=== PATIENT | male | born 1950 | race Caucasian/White ===

== ENCOUNTER 2018-09-29 14:46 | Inpatient (IN) ==
--- NOTE | 2018-09-29 15:12 | Emergency Department Note ---
Disposition Clinical Impression: FRANCK (acute kidney injury), Hypokalemia Cerebrovascular accident Qualifiers: CVA mechanism: other Qualified Code(s): I63.89 - Other cerebral infarction Anemia Qualifiers: Anemia type: unspecified type Qualified Code(s): D64.9 - Anemia, unspecified Disposition: Admitted As Inpatient Condition: Fair Forms: ED Satisfaction Letter Time of Disposition: 16:33 Neuro HPI - General Chief Complaint: ED Neuro Symptoms/Deficit Stated Complaint: Poss. Stroke Last week Time Seen by Provider: 09/29/18 14:53 Source: patient Limitations: no limitations Nursing Notes Reviewed: Yes Vital Signs Reviewed: Yes - History of Present Illness HPI Narrative: Patient is a 67-year-old male presenting with right-sided facial droop and weakness. Patient has no history of CVA, he does believe that he has had a TIA many years ago. Patient is currently on Plavix and aspirin for history of stenting in his heart. Per patient morning, this was four and a half days ago, the patient states that he was in his kitchen when he began to have his coffee run out of the right side of his mouth. He then went into the restroom and noticed that he had right-sided facial droop with difficulty speaking initially. He states that he no longer feels as though he has difficulty speaking but he continues to have right facial droop as well as difficulty shutting his right eye. Patient denies any unilateral weakness in h is upper or lower extremities. He does think he has change in sensation slightly in the right lower arm. No motor changes in his legs. Patient without fever, chills, cough, abdominal pain, nausea or vomiting. Patient denies any recent trauma or falls. - Related Data Home Medications: Home Medications Medication Instructions Recorded Confirmed Albuterol Sulfate [Albuterol 2 IH Q4HR 02/05/17 Inhaler] Carvedilol 12.5 mg PO BID 02/05/17 02/05/17 Gemfibrozil [Lopid] 600 mg PO BIDWM 02/05/17 02/05/17 Insulin ASPART [Novolog Flexpen] 75 unit SQ TID 02/05/17 Lisinopril [Zestril] 40 mg PO DAILY 02/05/17 02/05/17 Pregabalin [Lyrica] 100 mg PO BID 02/05/17 08/05/17 Aspirin [Lo-Dose Aspirin EC] 81 mg PO 08/05/17 Clopidogrel Bisulfate [Plavix] 75 mg PO 08/05/17 Dulaglutide [Trulicity] 1.5 mg SQ 08/05/17 hydroCHLOROthiazide 25 mg PO DAILY 08/05/17 08/05/17 [Hydrochlorothiazide] Previous Rx's Medication Instructions Recorded Carvedilol [Coreg] 25 mg PO BID #60 tablet 08/05/17 Allergies/Adverse Reactions: Allergies Allergy/AdvReac Type Severity Reaction Status Date / Time No Known Allergies Allergy Verified 09/29/18 14:59 All systems ED: reviewed and negative except as stated. Review of Systems: As Per HPI Constitutional: Denies: fever, chills, weakness, weight change Eyes: Denies: eye pain, eye discharge, vision change ENT ED: Denies: ear pain, throat pain, dental pain, hearing loss, epistaxis, congestion, dysphagia Cardiovascular: Denies: chest pain, palpitations, dyspnea on exertion, edema, syncope Respiratory: Denies: cough, dyspnea, wheezes, hemoptysis, stridor Gastrointestinal: Denies: abdominal pain, nausea, vomiting, diarrhea, constipation, hematemesis, melena, hematochezia Genitourinary: Denies: urgency, dysuria, frequency, hematuria Musculoskeletal: Denies: back pain, neck pain, arthralgia, myalgia Integumentary: Denies: rash, abrasion, lesions Neurological: Reports: headache, weakness, paresthesias. Denies: numbness, confusion Psychiatric: Denies: anxiety Past Medical History - Past Medical History Attestation: Yes The following information was validated with the patient. Source: patient Medical history: Reports: coronary artery disease, diabetes, hyperlipidemia, hypertension, myocardial infarction, renal disease, TIA, other Surgical history: Reports: angioplasty/stent Psychiatric history: Reports: no psych history - Social History Smoking Status: Current every day smoker Smokeless Tobacco Status: No Alcohol use: Reports: none Drug use: Reports: none Physical Exam - General Limitations: no limitations General appearance: alert - Head Head exam: atraumatic, normocephalic - Eye Eye exam: Present: normal appearance, PERRL, EOMI - ENT ENT exam: normal exam, normal oropharynx, mucous membranes moist - Neck Neck exam: Present: normal inspection, full ROM, trachea midline - Chest Chest inspection: Present: normal inspection, symmetric chest wall rise - Respiratory Respiratory exam: Present: normal lung sounds bilaterally. Absent: respiratory distress - Cardiovascular Cardiovascular exam: Present: regular rate, normal rhythm, normal heart sounds - Abdominal Exam Abdominal exam: Present: soft, Non-Tender. Absent: tenderness, distention, guarding, rebound, rigidity - Extremities Exam Extremities exam: Present: normal inspection, full ROM. Absent: tenderness, pedal edema - Neurological Exam Neurological exam: Present: alert, oriented X3, CN II-XII intact - Expanded Neurological Exam Patient oriented to: Present: person, place, time Speech: Present: fluid speech Cranial nerves: EOM function (II, III, IV, ): Normal, facial sensation (V): Normal, facial palsy (VII): Abnormal Right, gag reflex (IX): Normal, spinal accessory function (XI): Normal, tongue deviation (XII): Normal Cerebellar function: finger to nose: Normal Motor strength - LUE: 5/5 Motor strength - RUE: 5/5 Motor strength - LLE: 5/5 Motor strength - RLE: 5/5 Upper motor neuron exam: kim neglect: Absent bilaterally, pronator drift: Absent bilaterally Coma Scale Eye Opening: Spontaneous Coma Scale Motor Response: Obeys Commands Coma Scale Verbal Response: Oriented Coma Scale Total: 15 - Psychiatric Psychiatric exam: Present: normal affect, normal mood - Skin Skin exam: Present: warm, dry, intact, normal color Course Vital Signs Temperature 98.0 F 09/29/18 14:48 Pulse Rate 82 09/29/18 14:48 Respiratory Rate 16 09/29/18 14:48 Blood Pressure 163/77 09/29/18 14:48 O2 Sat by Pulse Oximetry 96 09/29/18 14:48 Temperature 98.0 F 09/29/18 15:01 Pulse Rate 79 09/29/18 15:45 Respiratory Rate 20 09/29/18 15:45 Blood Pressure 163/90 09/29/18 15:45 O2 Sat by Pulse Oximetry 99 09/29/18 15:45 Oxygen Delivery Oxygen Delivery Room Air Neuro Symptoms/Deficit - MDM Narrative Medical decision making narrative: Patient is a 59-year-old male presenting with right facial weakness. This is started Jorge Luis 4-1/2 days ago. He was not seen as he was able to drive in the snow. States his symptoms have not gotten worse and gone unchanged. Patient has history of hypertension, hyperlipidemia as well as insulin-dependent diabetes mellitus type 2 as well as TIA multiple years ago. Never diagnosed with a CVA. On initial evaluation, patient is NIH of 3, GCS of 15, does have right-sided facial droop as well as right upper facial decreased movement. On examination, no upper extremity signs or symptoms, no lower extrude any signs or symptoms, no weakness or sensation changes. Patient is currently on Plavix and aspirin for history of CAD status post stenting. She has been taking this medication as prescribed. CT of the head was performed which shows no acute intracranial abnormality. EKG shows no acute ischemic changes. Troponin is negative. CBC is unremarkable other than slight anemia at 12.4. Patient's serum creatinine is 1.74, appears slightly higher than baseline of 1.5 as well as hypokalemic at 3.1. Patient was started on normal saline with a 500 mL bolus as well as by mouth potassium replacement. Corrected sodium is within normal limits as patient is hyperglycemic. He states that he is at her check his blood glucose in the past few hours due to being here. At this point in time, we will admit the patient for concern for CVA. I will speak with the hospitalist get the patient admitted. - Medical Records Medical records reviewed: Yes I reviewed the patient's medical records. - Lab Data Lab results reviewed: Yes I reviewed the patient's lab results. Result diagrams: 09/29/18 15:15 09/29/18 15:15 Lab Results 09/29/18 09/29/18 09/29/18 Range/Units 15:15 15:15 15:15 WBC 8.8 (4.3-11.1) K/mcL RBC 4.20 (4.19-5.50) M/mcL Hgb 12.4 L (12.9-16.9) g/dL Hct 36.6 L (37.5-50.1) % MCV 87.1 (83.0-100.0) fL MCH 29.5 (28.0-33.3) pg MCHC 33.9 (31.6-35.5) g/dL RDW 13.6 (11.5-14.5) % Plt Count 247 (140-400) K/mcL MPV 9.9 (9.4-12.4) fL PT 10.5 (9.4-12.1) Seconds INR 0.9 APTT 31.5 (26.0-36.0) Seconds Sodium 137 (136-145) mEq/L Potassium 3.1 L (3.5-5.1) mEq/L Chloride 100 (98-107) mEq/L Carbon Dioxide 27 (23-29) mEq/L BUN 22 (8-23) mg/dL Creatinine 1.74 H (0.70-1.30) mg/dL Est GFR ( Amer) 48 L (> 60) Est GFR (Non-Af Amer) 39 L (> 60) BUN/Creatinine Ratio 13 (6-26) Glucose 268 H (70-105) mg/dL Calculated Osmolality 297 (280-300) Calcium 8.2 L (8.6-10.3) mg/dL Troponin I 0.03 (< 0.04) ng/mL - Radiology Data Radiology results reviewed: Yes I reviewed the patient's radiology results. Head CT 09/29/18 15:06 IMPRESSION: No acute intracranial abnormality. D/ / Burt White MD / Burt White MD Interpreting Provider: Burt hWite MD - EKG Data EKG attestation: Yes I reviewed and interpreted this EKG. EKG results narrative: EKG performed at 1613 with ventricular rate of 76, normal axis, regular rhythm, prolonged NC interval at 200, no dropped beats. No ST elevation or depression. Nonspecific T-wave changes. Overall EKG shows normal sinus rhythm with first- degree block. NIH Stroke Scale - Level of Consciousness LOC: Alert - LOC Questions LOC Questions: Answers both correctly - LOC Commands LOC Commands: Performs both correctly - Best Gaze Best Gaze: Normal - Visual Visual: No visual loss - Facial Palsy Facial Palsy: Complete absence of movement in upper and lower face - Motor Arms Motor Arm-Left: No drift for 10 seconds Motor Arm-Right: No drift for 10 seconds - Motor Legs Motor Leg-Left: No drift for 5 seconds Motor Leg-Right: No drift for 5 seconds - Limb Ataxia Limb Ataxia: Absent of affected limb too weak to perform exam - Sensory Sensory: Normal - Best Language Best Language: No aphasia - Dysarthria Dysarthria: Normal - Extinction and Inattention Extinction and Inattention: Normal - NIHSS Total Score NIHSS Total Score: 3 TPA Checklist - LKW: 3-4.5 hrs Add. Warnings/Precautions Patient/family understanding: The patient/family members have been counseled and understood the risk, benefit, and alternatives of treatment. Durga - Durga Situation: Demographics, MOA Background: Presenting Complaint, Relevant PMH, Meds, & Allergies Assessment: Vital Signs, Course and respsone to treatment, Exam Concerns, Patient/Family Expectation, Pertinant Lab Results, Outstanding Labs Recommendation: Barrier(s) to disposition, Recommendation based on pending studies, treatments, or consults Durga Report Given to: Hospitalist Durga Repor Time: 16:33 (accepted)
--- NOTE | 2018-09-29 15:15 | Emergency Department Note ---
Disposition Clinical Impression: Cerebrovascular accident Qualifiers: CVA mechanism: unspecified Qualified Code(s): I63.9 - Cerebral infarction, unspecified Disposition: Admitted As Inpatient Forms: ED Satisfaction Letter General Adult HPI - General Chief complaint: ED Neuro Symptoms/Deficit Stated complaint: Poss. Stroke Last week Time Seen by Provider: 09/29/18 14:53 Source: patient Limitations: no limitations Nursing Notes Reviewed: Yes Vital Signs Reviewed: Yes - History of Present Illness HPI Narrative: ED ATTESTATION NOTE: I examined this patient and my medical decision-making was reviewed with the Resident Physician/[employer]LECT[employer]ICIAN/PA/Student. I have personally performed a face to face evaluation on this patient & I agree with the documented findings, disposition and treatment plan as described except to the extent set forth below. Patient was seen with emergency medicine resident Jessie Calderon please see copy of his note for details of this encounter Briefly: 67 year old male no prior history of stroke or TIA comes in with strokelike symptoms starting on of some visual disturbances and dysarthria. Patient's NIH was 1 or 2. Patient will undergo CVA workup. Patient is out of the window for TPA and assessed not a stroke alert candidate. Patient will be admitted. Admission disposition pending Pain Scale: 5 - Related Data Home Medications Medication Instructions Recorded Confirmed Albuterol Sulfate [Albuterol 2 IH Q4HR 02/05/17 Inhaler] Carvedilol 12.5 mg PO BID 02/05/17 02/05/17 Gemfibrozil [Lopid] 600 mg PO BIDWM 02/05/17 02/05/17 Insulin ASPART [Novolog Flexpen] 75 unit SQ TID 02/05/17 Lisinopril [Zestril] 40 mg PO DAILY 02/05/17 02/05/17 Pregabalin [Lyrica] 100 mg PO BID 02/05/17 08/05/17 Aspirin [Lo-Dose Aspirin EC] 81 mg PO 08/05/17 Clopidogrel Bisulfate [Plavix] 75 mg PO 08/05/17 Dulaglutide [Trulicity] 1.5 mg SQ 08/05/17 hydroCHLOROthiazide 25 mg PO DAILY 08/05/17 08/05/17 [Hydrochlorothiazide] Previous Rx's Medication Instructions Recorded Carvedilol [Coreg] 25 mg PO BID #60 tablet 08/05/17 Allergies Allergy/AdvReac Type Severity Reaction Status Date / Time No Known Allergies Allergy Verified 09/29/18 14:59 Past Medical History - Past Medical History Medical history: Reports: coronary artery disease, diabetes, hyperlipidemia, hypertension, myocardial infarction, renal disease, TIA, other Surgical history: Reports: angioplasty/stent Psychiatric history: Reports: no psych history - Social History Smoking Status: Current every day smoker Smokeless Tobacco Status: No Alcohol use: Reports: none Drug use: Reports: none Physical Exam - General Limitations: no limitations General appearance: alert Course Vital Signs Temperature 98.0 F 09/29/18 14:48 Pulse Rate 82 09/29/18 14:48 Respiratory Rate 16 09/29/18 14:48 Blood Pressure 163/77 09/29/18 14:48 O2 Sat by Pulse Oximetry 96 09/29/18 14:48 Temperature 98.0 F 09/29/18 15:01 Pulse Rate 82 09/29/18 15:01 Respiratory Rate 16 09/29/18 15:01 Blood Pressure 163/77 09/29/18 15:01 O2 Sat by Pulse Oximetry 100 09/29/18 15:01 Oxygen Delivery Oxygen Delivery Room Air
[2018-09-29 15:32] LABS: Hematocrit 36.6 % (37.5-50.1); Hemoglobin 12.4 g/dL (12.9-16.9); Mean Corpuscular HGB Conc 33.9 g/dL (31.6-35.5); Mean Corpuscular Hemoglobin 29.5 pg (28.0-33.3); Mean Corpuscular Volume 87.1 fL (83.0-100.0); Mean Platelet Volume 9.9 fL (9.4-12.4); Platelet Count 247 K/mcL (140-400); Red Cell Distribution Width 13.6 % (11.5-14.5)
[2018-09-29 15:41] LABS: INR 0.9; Prothrombin Time 10.5 Seconds (9.4-12.1)
[2018-09-29 15:44] LABS: Activated Partial Thrombo Time 31.5 Seconds (26.0-36.0)
[2018-09-29 15:51] LABS: Calcium 8.2 mg/dL (8.6-10.3); Potassium 3.1 mEq/L (3.5-5.1); Troponin I 0.03 ng/mL (< 0.04)
[2018-09-29] MEDS ORDERED: 0.9 % Sodium Chloride 500 ML IVC ONE (16:07)
--- NOTE | 2018-09-29 16:34 | Internal Med History&Physical ---
<Adebayo Frost - Last Filed: 09/29/18 17:30> Date of Encounter: 09/29/18 Time of Encounter: 16:33 Internal Medicine - H&P: HPI Chief complaint: Right facial droop Admitted From: Home History of present illness: Mr. Lujan is a 67 year old male with a PMH of CAD on Aspirin and Plavix, cardiac stent x1, HTN, HLD, DM type 2 with an insulin pump, and RLS presented c/o right facial droop, right tongue numbness, and blurry vision since awaking on 09/25/18. Patient noticed coffee pouring out of the side of his mouth when he attempted to drink coffee morning. Patient reports the right side of his tongue "feels like someone rubbed chalk on it" and he had difficulty speaking initially. He reports associated generalized weakness, chronic numbness in his right leg due to diabetic neuropathy, and his right eye has been watering since . He decided to come to the ED today when symptoms did not improve. In the ED, CT brain revealed no acute intracranial abnormality. He was not a candidate for tPa administration due to the onset of symptoms 4 days ago. Patient was admitted for further CVA work up. Past Med Surg Social Fam HX - Past Medical History Medical history: coronary artery disease, diabetes (on insulin pump), hyperlipidemia, hypertension, myocardial infarction (stent x1), renal disease, TIA, other Additional medical history: restless leg syndrome, Polio as a child Psychiatric history: no psych history - Past Surgical History Surgical History: angioplasty/stent - Social History Smoking Status: Current every day smoker Packs per day: 1 Smokeless Tobacco Status: No Alcohol use: none Drug use: none Current living situation: Home - Independent Activity Level: Independent ambulation - Family History Mother Hx Family Endocrine Disorder: Yes (DM) Father Hx Family Neurologic Disorders: Yes (CVA, Parkinsons) Sister Hx Family Neurologic Disorders: Yes (CVA) Internal Medicine - H&P: Meds Albuterol Sulfate [Albuterol Inhaler] 2 IH Q4HR 02/05/17 [History] Carvedilol 12.5 mg PO BID 02/05/17 [History] Gemfibrozil [Lopid] 600 mg PO BIDWM 02/05/17 [History] Insulin ASPART [Novolog Flexpen] 75 unit SQ TID 02/05/17 [History] Lisinopril [Zestril] 40 mg PO DAILY 02/05/17 [History] Pregabalin [Lyrica] 100 mg PO BID 02/05/17 [History] Aspirin [Lo-Dose Aspirin EC] 81 mg PO 08/05/17 [History] Carvedilol [Coreg] 25 mg PO BID #60 tablet 08/05/17 [Rx] Clopidogrel Bisulfate [Plavix] 75 mg PO 08/05/17 [History] Dulaglutide [Trulicity] 1.5 mg SQ 08/05/17 [History] hydroCHLOROthiazide [Hydrochlorothiazide] 25 mg PO DAILY 08/05/17 [History] Allergy/AdvReac Type Severity Reaction Status Date / Time No Known Allergies Allergy Verified 09/29/18 14:59 All Systems PM: A 10-system review of systems was performed and is negative for pertinent findings except as documented above in the HPI. - Constitutional Constitutional: weakness, no anorexia, no chills, no fatigue, no fever(s), no falls, no lethargy - EENT Eyes: blurry vision, change in vision, diplopia, dry eye, no loss of vision Nose, mouth and throat: dysphagia, other, no tongue swelling - Cardiovascular Cardiovascular ROS IM: no chest pain, no dyspnea, no palpitations - Respiratory Respiratory: no cough, no dyspnea, no wheezing, no chest congestion - Gastrointestinal Gastrointestinal: no abdominal pain, no constipation, no diarrhea, no heartburn, no nausea, no vomiting - Genitourinary Genitourinary ROS male: no dysuria, no urinary frequency, no urinary urgency - Musculoskeletal Musculoskeletal ROS IM: numbness, no back pain, no stiffness - Integumentary Integumentary IM: no erythema, no rash - Neurological Neurological ROS: headache(s), numbness, paresthesias, tingling, weakness, other visual disturbances, no abnormal gait, no abnormal speech, no confusion, no dizziness, no focal weakness, no loss of vision - Psychiatric Psychiatric: no anxiety, no depression - Endocrine Endocrine IM: no fatigue, no polydipsia, no polyphagia, no polyuria - Constitutional Vitals: Temp Pulse Resp BP Pulse Ox 98.0 F 76 20 180/75 99 09/29/18 15:01 09/29/18 16:30 09/29/18 16:30 09/29/18 16:30 09/29/18 15:45 General appearance: Present: cooperative, A&O X 3, morbidly obese, pleasant, answers questions appropriately Exam: awake - Head Head exam: Present: atraumatic, normocephalic - Eye Eye exam: Present: EOMI, PERRL, conjuntiva pink, sclera anicteric Pupils: Present: PERRL - ENT ENT exam: Present: mucous membranes moist, normal oropharynx - Neck Neck exam general surgery: Present: supple, trachea midline. Absent: lymphad enopathy - Respiratory Respiratory exam: Present: CTAB. Absent: accessory muscle use, rales, rhonchi, wheezes - Cardiovascular Cardiovascular exam: Present: RRR, +S1, +S2. Absent: diastolic murmur, gallop, rubs, systolic murmur - GI/Abdominal GI/Abdominal exam: Present: normal bowel sounds, soft, no peritoneal signs. Absent: distended, guarding, tenderness Additional comments: insulin pump noted on anterior abdomen - Extremities Exam Extremities exam: Present: normal inspection, warm, radial pulses palpable and symmetrical. Absent: calf tenderness, cyanotic, pedal edema - Back Exam Back exam: Present: normal inspection. Absent: paraspinal tenderness, tenderness - Neurological Exam Neurological exam: Present: alert, motor sensory deficit (subjective decreased sensation RLE, chronic), oriented X3, no focal deficits, facial droop (right). Absent: speech deficit - Expanded Neurological Exam Neurological exam expanded: Present: protecting the airway. Absent: ataxia, receptive aphasia, total aphasia, tremor Patient oriented to: Present: person, place, time Speech: Present: fluid speech. Absent: expressive aphasia Cranial Nerves: gag reflex PM: Normal, tongue deviation PM: Normal Sensory exam: lower extremity light touch: Abnormal Right, upper extremity light touch: Normal Neuro motor strength exam: LUE: 5 (4/5 left editor greeting card strength compared to right editor greeting card 5/5), RUE: 5, LLE: 5, RLE: 5 Coma Scale Eye Opening: Spontaneous Coma Scale Motor Response: Obeys Commands Coma Scale Verbal Response: Oriented Coma Scale Total: 15 - Skin Skin exam: Present: dry, intact Internal Med - H&P Results - Labs CBC & Chem 7: 09/29/18 15:15 09/29/18 15:15 Labs: Short CBC 09/29/18 Range/Units 15:15 WBC 8.8 (4.3-11.1) K/mcL Hgb 12.4 L (12.9-16.9) g/dL Hct 36.6 L (37.5-50.1) % Plt Count 247 (140-400) K/mcL BMP 09/29/18 15:15 Sodium 137 Potassium 3.1 L Chloride 100 Carbon Dioxide 27 BUN 22 Creatinine 1.74 H Glucose 268 H Calcium 8.2 L Cardiac Enzymes 09/29/18 Range/Units 15:15 Troponin I 0.03 (< 0.04) ng/mL - Pulse Oximetry Interpretation Digit-Finger O2 Sat by Pulse Oximetry: 98 (On RA) Actions taken: none - EKG Data -: EKG Interpreted by Myself EKG shows normal: sinus rhythm (NSR HR 76, normal axis, prolonged DC interval at 200, no dropped beats. No ST elevation or depression. Nonspecific T-wave changes.) - Impressions ITS Impressions Head CT 09/29/18 15:06 IMPRESSION: No acute intracranial abnormality. D/ / Burt White MD / Burt White MD Interpreting Provider: Burt White MD - Assessment and plan (1) Cerebrovascular accident Current Visit: Yes Status: Acute Assessment and plan: Patient presented with right facial droop, right tongue numbness, and blurry vision since awaking on 09/25/18 CT brain revealed no acute intracranial abnormality. MRI brain pending Echo pending Carotid duplex pending CXR pending to r/o aspiration due to dysphagia NPO diet until cleared by ST PT/OT/ST consulted Continue home Aspirin and Plavix Neurology consulted, appreciate recommendations Qualifiers: CVA mechanism: unspecified Qualified Code(s): I63.9 - Cerebral infarction, unspecified (2) Hypokalemia Current Visit: Yes Status: Acute Assessment and plan: K 3.1 on admission, potassium supplemented Mag level pending Continue monitoring (3) CAD (coronary artery disease) Current Visit: No Status: Chronic Assessment and plan: Continue Aspirin and Plavix Qualifiers: Coronary Disease-Associated Artery/Lesion type: [place] artery [place] vs. transplanted heart: [place] heart Associated angina: without angina Qualified Code(s): I25.10 - Atherosclerotic heart disease of [place] coronary artery without angina pectoris (4) CKD (chronic kidney disease) stage 3, GFR 30-59 ml/min Current Visit: Yes Status: Chronic Assessment and plan: Avoid nephrotoxins (5) HLD (hyperlipidemia) Current Visit: Yes Status: Chronic Assessment and plan: Lipid panel pending (previous lipid panel from 04/15/18 reviewed) Start statin Qualifiers: Hyperlipidemia type: unspecified Qualified Code(s): E78.5 - Hyperlipidemia, unspecified (6) Anemia Current Visit: Yes Status: Chronic Assessment and plan: Chronic, likely due to CKD 3 No signs of bleeding. Continue monitoring Qualifiers: Anemia type: unspecified type Qualified Code(s): D64.9 - Anemia, unspecified; D63.1 - Anemia in chronic kidney disease (7) DM type 2 (diabetes mellitus, type 2) Current Visit: Yes Status: Chronic Assessment and plan: HGB a1c pending (last a1c was 13.1 on 02/06/17) Hold home insulin pump Continue accuchecks and lose dose SSI q6h while NPO Qualifiers: Diabetes mellitus bed bug exterminator insulin use: with bed bug exterminator use Diabetes mellitus complication status: with kidney complications Diabetes mellitus complication detail: with chronic kidney disease Chronic kidney disease stage: stage 3 (moderate) Qualified Code(s): E11.22 - Type 2 diabetes mellitus with diabetic chronic kidney disease; N18.3 - Chronic kidney disease, stage 3 (moderate); Z79.4 - MCC (current) use of insulin (8) COPD (chronic obstructive pulmonary disease) Current Visit: No Status: Chronic Assessment and plan: Chronic, not in exacerbation Duonebs prn Qualifiers: COPD type: unspecified COPD Qualified Code(s): J44.9 - Chronic obstructive pulmonary disease, unspecified (9) Tobacco dependence Current Visit: No Status: Chronic Assessment and plan: Tobacco cessation discussed Nicotine patch ordered (10) Obesity, morbid, BMI 40.0-49.9 Current Visit: Yes Status: Chronic Assessment and plan: BMI 40 Lifestyle modification (11) DVT prophylaxis Current Visit: Yes Status: Acute Assessment and plan: Heparin subcutaneous TID (12) HTN (hypertension) Current Visit: Yes Status: Chronic Assessment and plan: Allow permissive HTN Resume home meds once tolerating PO intake Qualifiers: Hypertension type: unspecified Qualified Code(s): I10 - Essential (primary) hypertension - Time Spent With Patient Total time spent is greater than 50% in coordination of care (as documented) at patient's floor/unit and/or counseling patient: <Haim Dallas - Last Filed: 09/29/18 19:50> Date of Encounter: 09/29/18 Internal Medicine - H&P: HPI History of present illness: Mr. Lujan is a 67 year old male All Systems PM: A 10-system review of systems was performed and is negative for pertinent findings except as documented above in the HPI. - Constitutional Vitals: Temp Pulse Resp BP Pulse Ox 98.3 F 78 16 195/90 96 09/29/18 18:55 09/29/18 18:55 09/29/18 18:55 09/29/18 18:55 09/29/18 18:55 Internal Med - H&P Results - Labs CBC & Chem 7: 09/29/18 15:15 09/29/18 15:15 Labs: Short CBC 09/29/18 Range/Units 15:15 WBC 8.8 (4.3-11.1) K/mcL Hgb 12.4 L (12.9-16.9) g/dL Hct 36.6 L (37.5-50.1) % Plt Count 247 (140-400) K/mcL BMP 09/29/18 15:15 Sodium 137 Potassium 3.1 L Chloride 100 Carbon Dioxide 27 BUN 22 Creatinine 1.74 H Glucose 268 H Calcium 8.2 L Cardiac Enzymes 09/29/18 Range/Units 15:15 Troponin I 0.03 (< 0.04) ng/mL - Impressions ITS Impressions Head CT 09/29/18 15:06 IMPRESSION: No acute intracranial abnormality. D/ / Burt White MD / Burt White MD Interpreting Provider: Burt White MD Brain MRI 09/29/18 17:00 IMPRESSION: No acute infarct. D/ / Andres Hernandez MD / Andres Hernandez MD Interpreting Provider: Andres Hernandez MD Chest X-Ray 09/29/18 17:11 IMPRESSION: No acute process. D/ / 09/29/2018 18:12:16 Gavin Magdaleno MD / patti Interpreting Provider: Gavin Magdaleno MD - Assessment and plan (1) Right-sided Olivarez's palsy Current Visit: Yes Status: Suspected (2) CKD (chronic kidney disease) stage 3, GFR 30-59 ml/min Current Visit: Yes Status: Chronic (3) Anemia Current Visit: Yes Status: Suspected Qualifiers: Anemia type: due to chronic kidney disease Chronic kidney disease stage: stage 3 (moderate) Qualified Code(s): N18.3 - Chronic kidney disease, stage 3 (moderate); D63.1 - Anemia in chronic kidney disease (4) DM type 2 (diabetes mellitus, type 2) Current Visit: Yes Status: Chronic Qualifiers: Diabetes mellitus bed bug exterminator insulin use: with penitentiary use Diabetes mellitus complication status: with kidney complications Diabetes mellitus complication detail: with chronic kidney disease Chronic kidney disease stage: stage 3 (moderate) Qualified Code(s): E11.22 - Type 2 diabetes mellitus with diabetic chronic kidney disease; N18.3 - Chronic kidney disease, stage 3 (moderate); Z79.4 - MCC (current) use of insulin (5) COPD (chronic obstructive pulmonary disease) Current Visit: No Status: Chronic Qualifiers: COPD type: unspecified COPD Qualified Code(s): J44.9 - Chronic obstructive pulmonary disease, unspecified (6) Cerebrovascular accident Current Visit: Yes Status: Acute Qualifiers: CVA mechanism: unspecified Qualified Code(s): I63.9 - Cerebral infarction, unspecified (7) Hypokalemia Current Visit: Yes Status: Acute (8) Tobacco dependence Current Visit: No Status: Chronic (9) DVT prophylaxis Current Visit: Yes Status: Acute (10) Obesity, morbid, BMI 40.0-49.9 Current Visit: Yes Status: Chronic (11) CAD (coronary artery disease) Current Visit: No Status: Chronic Qualifiers: Coronary Disease-Associated Artery/Lesion type: [place] artery [place] vs. transplanted heart: [place] heart Associated angina: without angina Qualified Code(s): I25.10 - Atherosclerotic heart disease of [place] coronary artery without angina pectoris (12) HLD (hyperlipidemia) Current Visit: Yes Status: Chronic Qualifiers: Hyperlipidemia type: mixed hyperlipidemia Qualified Code(s): E78.2 - Mixed hyperlipidemia (13) HTN (hypertension) Current Visit: Yes Status: Chronic Qualifiers: Hypertension type: essential hypertension Qualified Code(s): I10 - Essential (primary) hypertension - Time Spent With Patient Total time spent is greater than 50% in coordination of care (as documented) at patient's floor/unit and/or counseling patient: - Attending Attestation I examined this patient and my medical decision-making was reviewed with the Resident Physician on 09/29/18. I agree with the documented findings, dispos ition and treatment plan as described except to the extent set forth below. Mr Lujan is 67 y/o male with HTN and DM presented with sudden onset of R side facial weakness starting last . Having difficulty closing R eye. Tongue feels funny. Now has headache and pain around R ear. No other weakness. Exam alert and pleasant Mucus membranes moist Heart reg and no murmur Lungs clear Abd soft Facial exam: Some forehead movement on R but not as much as on L. Unable to fully close R eye. R facial droop noted. No other weakness noted. I/P 1. Probable Olivarez's palsy - start Prednisone and Valacyclovir 2. Watch sugars with Prednisone Neuro eval tomorrow Further diagnoses and plan as above.
[2018-09-29] MEDS ORDERED: Dextrose Gel 15 GM/37.5 ML TUBE PO PRN ×2 (17:00)
[2018-09-29] MEDS ORDERED: *HR* Dextrose 50 % in Water (Syg) 50 ML SYRINGE IVP PRN (17:00)
[2018-09-29] MEDS ORDERED: Naloxone 0.4 MG/ML INJ IVP PRN (17:00)
[2018-09-29] MEDS ORDERED: D5% in Water 1,000 ML IVC PRN (17:00)
[2018-09-29] MEDS ORDERED: Acetaminophen 325 MG TABLET PO PRN (17:07)
[2018-09-29] MEDS ORDERED: Ondansetron 4 MG/2 ML VIAL IVP PRN (17:07)
[2018-09-29] MEDS ORDERED: Nicotine 14 MG PATCH.TD24 TD SCH (17:15)
[2018-09-29] MEDS ORDERED: Ipratropium/Albuterol Neb 3 ML IH PRN (17:18)
[2018-09-29 17:56] LABS: Magnesium 1.7 mg/dL (1.6-2.6)
[2018-09-29] MEDS ORDERED: Ketorolac 15 MG/ML VIAL IVP ONE (19:52)
[2018-09-29] MEDS ORDERED: predniSONE 20 MG TABLET PO ONE (19:53)
[2018-09-29] MEDS: valACYclovir 500 MG TABLET PO SCH (20:49)
[2018-09-29] MEDS: Pregabalin 50 MG CAPSULE PO SCH (20:50)
[2018-09-29] MEDS: Insulin LISPRO 300 UNITS/3 ML VIAL SQ SCH (20:51)
[2018-09-29] MEDS: *HR* Heparin 5,000 UNIT/ML VIAL SQ SCH (20:52)
[2018-09-29] MEDS ORDERED: NON-FORMULARY MEDICATION 1 EACH EACH (Carvedilol [Carvedilol] 12.5 MG) PO SCH (21:00)
[2018-09-30] MEDS: Insulin LISPRO 300 UNITS/3 ML VIAL SQ SCH ×3 (00:25→13:38)
[2018-09-30 05:30] LABS: Hematocrit 35.3 % (37.5-50.1); Hemoglobin 11.9 g/dL (12.9-16.9); Mean Corpuscular HGB Conc 33.7 g/dL (31.6-35.5); Mean Corpuscular Hemoglobin 29.7 pg (28.0-33.3); Mean Platelet Volume 10.2 fL (9.4-12.4); Platelet Count 258 K/mcL (140-400); Red Blood Count 4.01 M/mcL (4.19-5.50); Red Cell Distribution Width 13.3 % (11.5-14.5)
[2018-09-30 05:53] LABS: Troponin I 0.03 ng/mL (< 0.04)
[2018-09-30 05:54] LABS: Albumin 3.2 g/dL (3.5-5.7); Bilirubin,Total 0.4 mg/dL (0.3-1.0); Calcium 8.2 mg/dL (8.6-10.3); Chol/HDL Ratio 4.4 (0-4.9); Globulin 3.3 g/dL (2.4-3.5); Potassium 3.6 mEq/L (3.5-5.1); Total Protein 6.5 g/dL (6.4-8.9)
[2018-09-30] MEDS: *HR* Heparin 5,000 UNIT/ML VIAL SQ SCH ×2 (06:25→13:38)
[2018-09-30 06:27] LABS: Estimated Average Glucose 255 mg/dl; Hemoglobin A1C 10.5 %
[2018-09-30 07:17] VITALS: BP 170/88
[2018-09-30] MEDS: Pregabalin 50 MG CAPSULE PO SCH (08:38)
[2018-09-30] MEDS: valACYclovir 500 MG TABLET PO SCH (08:38)
--- NOTE | 2018-09-30 08:42 | Neurology - Consult Note ---
Date of Encounter: 09/30/18 Time of Encounter: 08:39 Assessment and Plan (1) Right-sided Olivarez's palsy Current Visit: Yes Status: Suspected I agree that we are dealing with a peripheral facial palsy i.e. Olivarez's palsy. The MRI scan of the brain was negative for evidence of any acute infarct. There is no evidence of a CP angle tumor or any other structural lesion to which we can attribute the acute right facial weakness. Therefore is likely idiopathic probably viral. In regard to discuss this case with the medicine attending and I agree with starting acyclovir along with corticosteroids. Generally about a third of these individuals will completely recover, one third will partially recover, and one third will not recover much at all. Only time will tell. This juncture however I feel that no additional testing is necessary. To be my pleasure to follow up with him as an outpatient to monitor his progress. You may discharge him at your discretion. History of Present Illness HPI: The chart was reviewed, the patient was seen and examined. Mr. Lujan is a 67 year old male who is being seen for neurologic consultation at the request of the hospitalist secondary to acute onset right facial weakness. He informs me that approximately 3 days prior to admission he awakened from sleep and he felt normal at that time. However whenever he drank his his coffee cup he noticed that the coffee spilled onto his shirt. He stated that he thought the cup minded and cracked and looked at it and it was not. And when he looked in the mirror and determine that the right side of his face was drooping. He also mentions a fairly severe headache in the right mastoid region. He admits some difficulty with taste to the anterior two thirds of the tongue. He also felt as though the right side of his face felt like sandpaper. He denies any weakness of the arms or legs. He did have an MRI scan of the brain done last night which was negative for any evidence of acute infarct or tumor or hemorrhage. I did personally review the MRI scan of the brain. Some mild scattered white matter hyperintensities were present. He was initially felt to have had a stroke. Currently he is awake alert and oriented and in no acute distress. Past Med Surg Social Fam HX - Past Medical History Medical history: coronary artery disease, diabetes, hyperlipidemia, hypertension, myocardial infarction, renal disease, TIA, other Additional medical history: restless leg syndrome, Polio as a child Psychiatric history: no psych history - Past Surgical History Surgical History: angioplasty/stent - Social History Smoking Status: Current every day smoker Packs per day: 1 Smokeless Tobacco Status: No Alcohol use: none Drug use: none - Family History Mother Hx Family Endocrine Disorder: Yes (DM) Father Hx Family Neurologic Disorders: Yes (CVA, Parkinsons) Sister Hx Family Neurologic Disorders: Yes (CVA) Medications and Allergies Aspirin [Lo-Dose Aspirin EC] 81 mg PO DAILY 09/29/18 [History] Carvedilol [Coreg] 25 mg PO BID 09/29/18 [History] Cholecalciferol (D-3) [Vitamin D] 5,000 unit PO DAILY 09/29/18 [History] Clopidogrel [Plavix] 75 mg PO DAILY 09/29/18 [History] Dulaglutide [Trulicity] 1.5 unit SQ WE 09/29/18 [History] Ferrous Sulfate 325 mg PO DAILY 09/29/18 [History] Insulin ASPART [NovoLOG] 80 unit SQ DAILY 09/29/18 [History] Lisinopril [Zestril] 40 mg PO DAILY 09/29/18 [History] Potassium Chloride [K-Tab ER] 10 meq PO BID 09/29/18 [History] Pravastatin Sodium [Pravachol] 40 mg PO HS 09/29/18 [History] Pregabalin [Lyrica] 100 mg PO BID 09/29/18 [History] Ranitidine HCl [Zantac] 300 mg PO HS 09/29/18 [History] hydroCHLOROthiazide [Hydrochlorothiazide] 25 mg PO DAILY 09/29/18 [History] Allergy/AdvReac Type Severity Reaction Status Date / Time amitriptyline [From Elavil] AdvReac Insomnia Verified 09/29/18 21:30 All Systems: The remainder of the systems were reviewed and are negative Review of Systems: The balance of the systems review is negative. Physical Examination - Vital Signs Vital Signs: Initial Vital Signs Temp Pulse Resp BP Pulse Ox 98.0 F 82 16 163/77 96 09/29/18 14:48 09/29/18 14:48 09/29/18 14:48 09/29/18 14:48 09/29/18 14:48 - Exam Exam: General Examination: *CONSTITUTIONAL: normal *GENERAL APPEARANCE OF PATIENT appears healthy and well groomed *EYES: pupils equal, round, reactive to light and accommodation, conjunctiva clear without masses or ulcerations, fundi normal. *CARDIOVASCULAR no peripheral edema, distal temperature normal, dorsalis pedis pulses normal. Refer to vital signs Musculoskeletal: *GAIT AND STATION normal, with normal Romberg testing, no abnormalities such as broad base gait or spasticity *ASSESSMENT OF MUSCLE STRENGTH IN THE UPPER AND LOWER EXTREMITIES deltoid, bicep, tricep, cleaning specialist strength, hip flexors ,anterior tibialis, dorsoflexion of the foot normal. *MUSCLE TONE IN THE UPPER AND LOWER EXTREMITIES normal. No abnormal movements, fasciculations or atrophy identified. Neurological: *ORIENTATION to time and place *RECURRENT AND REMOTE MEMORY intact *ATTENTION AND CONCENTRATION are normal *LANGUAGE FUNCTION no significant aphasia or dysarthia was noted. *FUND OF KNOWLEDGE aware of current events, past history, vocabulary *MENTAL attention span and concentration normal. *CN II optic fundi were normal, no papilledema noted. *CN III,IV, PERRLA extraocular eye movements were full, no nystagmus and no ptosis noted. *CN V shows normal sensation and jaw opens symmetrically. *CN VII shows flattening of the right nasolabial fold as well as right facial droop. He is weakness of the right orbicularis oculi muscles as well as the right frontalis muscles in comparison to the left which are all normal. *CN VIII shows no significant hearing loss on examination in the office. *CN IX,,X palate elevated symmetrically and normal gag reflex was noted. *CN XI normal strength in the sternocleidomastoid muscles, symmetrical shoulder shrugging. *CN XII tongue protruded in the midline, with normal strength and movement. *SENSORY EXAMINATION pinprick sensation intact, and light touch(vibration sense). *REFLEXES: deep tendon reflexes were normal and symmetrical , grade 2/4 diffusely, no pathological reflexes were noted. *CEREBELLAR TESTING normal finger to nose, heel/knee/fernandes, and tandem walk. *PAIN LEVEL 6 involving the right mastoid region. Results - Laboratory Findings CBC and BMP: 09/30/18 04:55 09/30/18 04:55 Abnormal lab findings: Abnormal lab results RBC 4.01 M/mcL (4.19-5.50) L 09/30/18 04:55 Hgb 11.9 g/dL (12.9-16.9) L 09/30/18 04:55 Hct 35.3 % (37.5-50.1) L 09/30/18 04:55 BUN 24 mg/dL (8-23) H 09/30/18 04:55 Creatinine 1.82 mg/dL (0.70-1.30) H 09/30/18 04:55 Est GFR ( Amer) 45 (> 60) L 09/30/18 04:55 Est GFR (Non-Af Amer) 37 (> 60) L 09/30/18 04:55 Glucose 326 mg/dL (70-105) H 09/30/18 04:55 POC Glucose 345 mg/dL (70-99) H 09/30/18 00:09 Hemoglobin A1c 10.5 % (-5.6) H 09/30/18 04:55 Calculated Osmolality 301 (280-300) H 09/30/18 04:55 Calcium 8.2 mg/dL (8.6-10.3) L 09/30/18 04:55 AST 10 Units/L (13-39) L 09/30/18 04:55 Alkaline Phosphatase 105 Units/L (34-104) H 09/30/18 04:55 Albumin 3.2 g/dL (3.5-5.7) L 09/30/18 04:55 Albumin/Globulin Ratio 1.0 (1.1-2.2) L 09/30/18 04:55 Triglycerides 299 mg/dL (< 150) H 09/30/18 04:55 VLDL Cholesterol, Calc 60 mg/dL (< 31) H 09/30/18 04:55 HDL Cholesterol 30 mg/dL (40-59) L 09/30/18 04:55 Consult Discharge Plan - Plan Referrals: Lesly Taylor, [employer] [Advanced Practice Nurse] - 10/09/18 11:00 am NONE,PCP [Primary Care Provider] -
[2018-09-30] MEDS ORDERED: hydroCHLOROthiazide 25 MG TABLET PO SCH ×2 (09:00)
[2018-09-30] MEDS ORDERED: predniSONE 20 MG TABLET PO SCH (09:00)
[2018-09-30] MEDS ORDERED: Lisinopril 20 MG TABLET PO SCH (09:00)
[2018-09-30] MEDS ORDERED: Aspirin Enteric Coated 81 MG Tablet PO SCH (09:00)
--- NOTE | 2018-09-30 09:37 | Internal Med Progress Note ---
<Haim Dallas - Last Filed: 09/30/18 14:00> Hospitalist Progress Note - Encounter Date of Encounter: 09/30/18 - Exam Vitals: Temp Pulse Resp BP Pulse Ox 98.2 F 80 17 170/88 97 09/30/18 07:05 09/30/18 07:05 09/30/18 07:05 09/30/18 07:05 09/30/18 07:05 - Assessment and Plan (1) Right-sided Olivarez's palsy Current Visit: Yes Status: Acute (2) CKD (chronic kidney disease) stage 3, GFR 30-59 ml/min Current Visit: Yes Status: Chronic (3) Anemia Current Visit: Yes Status: Chronic (4) DM type 2 (diabetes mellitus, type 2) Current Visit: Yes Status: Chronic (5) COPD (chronic obstructive pulmonary disease) Current Visit: No Status: Chronic (6) Cerebrovascular accident Current Visit: Yes Status: Ruled-out (7) Hypokalemia Current Visit: Yes Status: Resolved (8) Obesity, morbid, BMI 40.0-49.9 Current Visit: Yes Status: Chronic (9) CAD (coronary artery disease) Current Visit: No Status: Chronic (10) HLD (hyperlipidemia) Current Visit: Yes Status: Chronic (11) HTN (hypertension) Current Visit: Yes Status: Chronic (12) Tobacco abuse Current Visit: Yes Status: Chronic - Time Spent with Patient Total time spent is greater than 50% in coordination of care (as documented) at patient's floor/unit and/or counseling patient: Internal Medicine: Result - Labs CBC & Chem 7: 09/30/18 04:55 09/30/18 04:55 Labs: Short CBC 09/29/18 09/30/18 Range/Units 15:15 04:55 WBC 8.8 9.1 (4.3-11.1) K/mcL Hgb 12.4 L 11.9 L (12.9-16.9) g/dL Hct 36.6 L 35.3 L (37.5-50.1) % Plt Count 247 258 (140-400) K/mcL BMP 09/29/18 09/30/18 15:15 04:55 Sodium 137 137 Potassium 3.1 L 3.6 Chloride 100 102 Carbon Dioxide 27 25 BUN 22 24 H Creatinine 1.74 H 1.82 H Glucose 268 H 326 H Calcium 8.2 L 8.2 L Cardiac Enzymes 09/29/18 09/29/18 09/30/18 Range/Units 15:15 21:32 04:55 Troponin I 0.03 < 0.03 0.03 (< 0.04) ng/mL Liver Function 09/30/18 Range/Units 04:55 Total Bilirubin 0.4 (0.3-1.0) mg/dL AST 10 L (13-39) Units/L ALT 7 (7-52) Units/L Alkaline Phosphatase 105 H (34-104) Units/L Albumin 3.2 L (3.5-5.7) g/dL - ABG Interpretation ABG results: PT/INR, D-dimer PT 10.5 Seconds (9.4-12.1) 09/29/18 15:15 - Impressions Impressions Head CT 09/29/18 15:06 IMPRESSION: No acute intracranial abnormality. D/ / Burt White MD / Burt White MD Interpreting Provider: Burt White MD Brain MRI 09/29/18 17:00 IMPRESSION: No acute infarct. D/ / Andres Hernandez MD / Andres Hernandez MD Interpreting Provider: Andres Hernandez MD Chest X-Ray 09/29/18 17:11 IMPRESSION: No acute process. D/ / 09/29/2018 18:12:16 Gavin Magdaleno MD / patti Interpreting Provider: Gavin Magdaleno MD Consult Discharge Plan - Plan Referrals: Lesly Taylor CNP [Advanced Practice Nurse] - 10/09/18 11:00 am NONE,PCP [Primary Care Provider] - Prescriptions: predniSONE [PredniSONE] 10 mg PO DAILY #55 tablet valACYclovir [Valtrex] 1,000 mg PO TID #16 tablet - Attending Attestation Please see discharge summary of this date. <Rowena Thompson - Last Filed: 09/30/18 14:21> Hospitalist Progress Note - Encounter Date of Encounter: 09/30/18 Time of Encounter: 09:05 - Subjective Interval History: This morning when I saw him, he was up sitting in his chair. He says that overall he is doing okay, he does have a headache that he described as being squeezed between a vice commissioning engineer. He denies it being located around his eyes and hasnt had a headache like this before. He says his tongue still feels gritty and like someone rubbed chalk on it. He admits to some numbness and tingling in his legs that he states is chronic. He denies fevers, chills, fatigue, chest pain, swelling, shortness of breath, abdominal pain, nausea, vomiting, diarrhea, or dysuria. - Exam Vitals: Temp Pulse Resp BP Pulse Ox 98.2 F 80 17 170/88 97 09/30/18 07:05 09/30/18 07:05 09/30/18 07:05 09/30/18 07:05 09/30/18 07:05 Exam: Gen.: Vitals noted. Sitting in his chair. HEENT: Atraumatic, normocephalic.Neck is supple and trachea midline. Mucosa moist, external ears normal. Cardiac: RRR, no murmurs. No BLE edema. Pulmonary: CTA bilaterally, no wheezes. Abdomen: Soft, BS noted, no guarding, no tenderness. Skin: Warm and dry. MSK:Gait not assessed while in chair, Radial pulses present and strong. Neuro: Upper extremity strength 5/5 bilaterally. Decreased sensation on the right side. Right facial features are asymmetrical, with a right eyelid droop, and paralysis and weakness of right sided facial muscle. Less wrinkling of forehead is present on right compared to left side. Psych: Appropriate mood and behavior - Assessment and Plan (1) Right-sided Olivarez's palsy Current Visit: Yes Status: Acute Assessment and Plan: -CT revealed no acute intracranial abormalities -MRI revealed no acute infarcts -CXRAY was negative and showed no acute processes, ruling out any concern for aspiration penumonia at this time -Neurology consulted and are considering this a likely Olivarez's palsy case rather than CVA due to the negative CVA w/u and there being no structural lesion to account for the facial weakness Plan: -Neurology recommends continuing with Prednisone and Acyclovir -Neurology reommends following up with patient in outpatient and from their viewpoint can be discharged (2) Anemia Current Visit: Yes Status: Chronic Assessment and Plan: -Hgb is 11.9, down from 12.4, this is patient's baseline in past visits -Etiology: likely due to anemia of chronic disease considering patient's CKD -No signs of bleeding Plan -Continue to monitor (3) CAD (coronary artery disease) Current Visit: No Status: Chronic Assessment and Plan: -Stable Plan -Continue Aspirin and Plavix (4) CKD (chronic kidney disease) stage 3, GFR 30-59 ml/min Current Visit: Yes Status: Chronic Assessment and Plan: -Creatinine 1.82 -Patient has a history of CKD, Creatinine was 2.70 on 02/06/2017 Plan -Avoid nephrotoxins -Continue to monitor (5) DM type 2 (diabetes mellitus, type 2) Current Visit: Yes Status: Chronic Assessment and Plan: -Glucose is 326, POC glucose is 345, likely elevated secondary to Steroids -Hgb a1c is 10.5, last a1c iwas 13.1 on 02/06/17 -Patient reports his sugars run in the 180s normally, though they can vary Plan: -Hold home insulin pump -Continue on diabetic diet -Continue accuchecks and lose dose SSI q6h (6) HLD (hyperlipidemia) Current Visit: Yes Status: Chronic Assessment and Plan: -Lipids panels Triglycerides 299, Cholesterol 133, LDL 43, HDL 30 Plan: -Start simvistatin 40mg PO (7) HTN (hypertension) Current Visit: Yes Status: Chronic Assessment and Plan: -Patients BP is 170/88 -W/u for CVA was negative, patient can resume home BP meds Plan -Continue Lisinopril 40mg -Restarted HCTZ 12.5 po -Continue to monitor (8) COPD (chronic obstructive pulmonary disease) Current Visit: No Status: Chronic Assessment and Plan: -Chronic, not in exacerbation, 97% saturation on room air Plan -Continue Duoneb prn Duonebs prn (9) DVT prophylaxis Current Visit: Yes Status: Acute Assessment and Plan: -Continue subcutaneous heparin - Time Spent with Patient Total time spent is greater than 50% in coordination of care (as documented) at patient's floor/unit and/or counseling patient: Internal Medicine: Result - Labs CBC & Chem 7: 09/30/18 04:55 09/30/18 04:55 Labs: Short CBC 09/29/18 09/30/18 Range/Units 15:15 04:55 WBC 8.8 9.1 (4.3-11.1) K/mcL Hgb 12.4 L 11.9 L (12.9-16.9) g/dL Hct 36.6 L 35.3 L (37.5-50.1) % Plt Count 247 258 (140-400) K/mcL BMP 09/29/18 09/30/18 15:15 04:55 Sodium 137 137 Potassium 3.1 L 3.6 Chloride 100 102 Carbon Dioxide 27 25 BUN 22 24 H Creatinine 1.74 H 1.82 H Glucose 268 H 326 H Calcium 8.2 L 8.2 L Cardiac Enzymes 09/29/18 09/29/18 09/30/18 Range/Units 15:15 21:32 04:55 Troponin I 0.03 < 0.03 0.03 (< 0.04) ng/mL Liver Function 09/30/18 Range/Units 04:55 Total Bilirubin 0.4 (0.3-1.0) mg/dL AST 10 L (13-39) Units/L ALT 7 (7-52) Units/L Alkaline Phosphatase 105 H (34-104) Units/L Albumin 3.2 L (3.5-5.7) g/dL - ABG Interpretation ABG results: PT/INR, D-dimer PT 10.5 Seconds (9.4-12.1) 09/29/18 15:15 - Impressions Impressions Head CT 09/29/18 15:06 IMPRESSION: No acute intracranial abnormality. D/ / Burt White MD / Burt White MD Interpreting Provider: Burt White MD Brain MRI 09/29/18 17:00 IMPRESSION: No acute infarct. D/ / Andres Hernandez MD / Andres Hernandez MD Interpreting Provider: Andres Hernandez MD Chest X-Ray 09/29/18 17:11 IMPRESSION: No acute process. D/ / 09/29/2018 18:12:16 Gavin Magdaleno MD / patti Interpreting Provider: Gavin Magdaleno MD <Haim Dallas - Last Filed: 09/30/18 14:00> (3) Anemia Qualifiers: Anemia type: due to chronic kidney disease Chronic kidney disease stage: stage 3 (moderate) Qualified Code(s): N18.3 - Chronic kidney disease, stage 3 (moderate); D63.1 - Anemia in chronic kidney disease (4) DM type 2 (diabetes mellitus, type 2) Qualifiers: Diabetes mellitus pipe jeeper insulin use: with mcfp use Diabetes mellitus complication status: with kidney complications Diabetes mellitus complication detail: with chronic kidney disease Chronic kidney disease stage: stage 3 (moderate) Qualified Code(s): E11.22 - Type 2 diabetes mellitus with diabetic chronic kidney disease; N18.3 - Chronic kidney disease, stage 3 (moderate); Z79.4 - halfway (current) use of insulin (5) COPD (chronic obstructive pulmonary disease) Qualifiers: COPD type: unspecified COPD Qualified Code(s): J44.9 - Chronic obstructive pulmonary disease, unspecified (6) Cerebrovascular accident Qualifiers: CVA mechanism: unspecified Qualified Code(s): I63.9 - Cerebral infarction, unspecified (9) CAD (coronary artery disease) Qualifiers: Coronary Disease-Associated Artery/Lesion type: [place] artery [place] vs. transplanted heart: [place] heart Associated angina: without angina Qualified Code(s): I25.10 - Atherosclerotic heart disease of [place] coronary artery without angina pectoris (10) HLD (hyperlipidemia) Qualifiers: Hyperlipidemia type: mixed hyperlipidemia Qualified Code(s): E78.2 - Mixed hyperlipidemia (11) HTN (hypertension) Qualifiers: Hypertension type: essential hypertension Qualified Code(s): I10 - Essential (primary) hypertension <Rowena Thompson - Last Filed: 09/30/18 14:21> (2) Anemia Qualifiers: Anemia type: due to chronic kidney disease Chronic kidney disease stage: stage 3 (moderate) Qualified Code(s): N18.3 - Chronic kidney disease, stage 3 (moderate); D63.1 - Anemia in chronic kidney disease (3) CAD (coronary artery disease) Qualifiers: Coronary Disease-Associated Artery/Lesion type: [place] artery [place] vs. transplanted heart: [place] heart Associated angina: without angina Qualified Code(s): I25.10 - Atherosclerotic heart disease of [place] coronary artery without angina pectoris (5) DM type 2 (diabetes mellitus, type 2) Qualifiers: Diabetes mellitus mcfp insulin use: with pipe jeeper use Diabetes mellitus complication status: with kidney complications Diabetes mellitus complication detail: with chronic kidney disease Chronic kidney disease stage: stage 3 (moderate) Qualified Code(s): E11.22 - Type 2 diabetes mellitus with diabetic chronic kidney disease; N18.3 - Chronic kidney disease, stage 3 (moderate); Z79.4 - bin worker (current) use of insulin (6) HLD (hyperlipidemia) Qualifiers: Hyperlipidemia type: mixed hyperlipidemia Qualified Code(s): E78.2 - Mixed hyperlipidemia (7) HTN (hypertension) Qualifiers: Hypertension type: essential hypertension Qualified Code(s): I10 - Essential (primary) hypertension (8) COPD (chronic obstructive pulmonary disease) Qualifiers: COPD type: unspecified COPD Qualified Code(s): J44.9 - Chronic obstructive pulmonary disease, unspecified
--- NOTE | 2018-09-30 13:46 | Discharge Summary ---
- NOTES TO OUTPATIENT PROVIDER Notes to Outpatient Provider: Pt presented to ED with 3 day history of R facial weakness. Admitted as probable CVA. [place] to have Olivarez's palsy and discharged. Date of Encounter: 09/30/18 Time of Encounter: 13:42 - Discharge Diagnosis (1) Right-sided Olivarez's palsy Priority: Primary Status: Acute (2) CKD (chronic kidney disease) stage 3, GFR 30-59 ml/min Priority: Secondary Status: Chronic (3) Anemia Priority: Secondary Status: Chronic Qualifiers: Anemia type: due to chronic kidney disease Chronic kidney disease stage: stage 3 (moderate) Qualified Code(s): N18.3 - Chronic kidney disease, stage 3 (moderate); D63.1 - Anemia in chronic kidney disease (4) DM type 2 (diabetes mellitus, type 2) Priority: Secondary Status: Chronic Qualifiers: Diabetes mellitus terminal worker insulin use: with long-term use Diabetes mellitus complication status: with kidney complications Diabetes mellitus complication detail: with chronic kidney disease Chronic kidney disease stage: stage 3 (moderate) Qualified Code(s): E11.22 - Type 2 diabetes mellitus with diabetic chronic kidney disease; N18.3 - Chronic kidney disease, stage 3 (moderate); Z79.4 - middle or intermediate school principal (current) use of insulin (5) COPD (chronic obstructive pulmonary disease) Priority: Secondary Status: Chronic Qualifiers: COPD type: unspecified COPD Qualified Code(s): J44.9 - Chronic obstructive pulmonary disease, unspecified (6) Cerebrovascular accident Priority: Secondary Status: Ruled-out Qualifiers: CVA mechanism: unspecified Qualified Code(s): I63.9 - Cerebral infarction, unspecified (7) Hypokalemia Priority: Secondary Status: Resolved (8) Obesity, morbid, BMI 40.0-49.9 Priority: Secondary Status: Chronic (9) CAD (coronary artery disease) Priority: Secondary Status: Chronic Qualifiers: Coronary Disease-Associated Artery/Lesion type: [place] artery [place] vs. transplanted heart: [place] heart Associated angina: without angina Qualified Code(s): I25.10 - Atherosclerotic heart disease of [place] coronary artery without angina pectoris (10) HLD (hyperlipidemia) Priority: Secondary Status: Chronic Qualifiers: Hyperlipidemia type: mixed hyperlipidemia Qualified Code(s): E78.2 - Mixed hyperlipidemia (11) HTN (hypertension) Priority: Secondary Status: Chronic Qualifiers: Hypertension type: essential hypertension Qualified Code(s): I10 - Ess ential (primary) hypertension (12) Tobacco abuse Priority: Secondary Status: Chronic Hospital course: Mr. Lujan is a 67 year old male with hx of HTN, DM, HLD, CAD and tobacco abuse presented to ED with R facial weakness. Symptoms began about 3 days prior to arrival. He was admitted as possible CVA. Mr Lujan was admitted to [facility]. He was evaluated on the floor and upon further examination it was felt that this was not a stroke but was Olivarez's palsy on the R. He was started on Prednisone and Valacyclovir. Overnight he had improvement in his symptoms though still present. Today he is afebrile and ready for discharge home. On admit it was felt that this patient had a acute CVA and therefor was high risk and would require greater than 2 midnights in the hospital. Therefore he was admitted to inpatient status. He was negative for CVA and now will be discharged sooner than planned on admission. - Time Spent with Patient Total time spent providing and/or coordinating discharge services: 37min - Discharge Medications Prescriptions: predniSONE [PredniSONE] 10 mg PO DAILY #55 tablet valACYclovir [Valtrex] 1,000 mg PO TID #16 tablet Home Medications: Aspirin [Lo-Dose Aspirin EC] 81 mg PO DAILY 09/29/18 [History] Carvedilol [Coreg] 25 mg PO BID 09/29/18 [History] Cholecalciferol (D-3) [Vitamin D] 5,000 unit PO DAILY 09/29/18 [History] Clopidogrel [Plavix] 75 mg PO DAILY 09/29/18 [History] Dulaglutide [Trulicity] 1.5 unit SQ WE 09/29/18 [History] Ferrous Sulfate 325 mg PO DAILY 09/29/18 [History] Insulin ASPART [NovoLOG] 80 unit SQ DAILY 09/29/18 [History] Lisinopril [Zestril] 40 mg PO DAILY 09/29/18 [History] Potassium Chloride [K-Tab ER] 10 meq PO BID 09/29/18 [History] Pravastatin Sodium [Pravachol] 40 mg PO HS 09/29/18 [History] Pregabalin [Lyrica] 100 mg PO BID 09/29/18 [History] Ranitidine HCl [Zantac] 300 mg PO HS 09/29/18 [History] hydroCHLOROthiazide [Hydrochlorothiazide] 25 mg PO DAILY 09/29/18 [History] Acetaminophen [Tylenol] 650 mg PO Q6HR PRN tablet 09/30/18 [Rx] Nicotine Patch [Nicoderm] 14 mg TD Q24H patch.td24 09/30/18 [Rx] predniSONE [PredniSONE] 10 mg PO DAILY #55 tablet 09/30/18 [Rx] valACYclovir [Valtrex] 1,000 mg PO TID #16 tablet 09/30/18 [Rx] Allergies/Adverse Reactions: Allergy/AdvReac Type Severity Reaction Status Date / Time amitriptyline [From Elavil] AdvReac Insomnia Verified 09/29/18 21:30 Date of admission: 09/29/18 19:37 Primary care physician: PCP NONE Consults: 09/29/18 17:00 Consult to Neurology [CONS] Routine Consulting Provider: Neurology [facility] Reason for Consult: right facial droop, right tongue numbness, blurry vision since 09/25/18 Time Notified: 17:08 Call Completed: Yes Discharging clinician: Haim Dallas Anticipated date of discharge: 09/30/18 - Constitutional Vitals: Temp Pulse Resp BP Pulse Ox 98.2 F 80 17 170/88 97 09/30/18 07:05 09/30/18 07:05 09/30/18 07:05 09/30/18 07:05 09/30/18 07:05 General appearance: Present: cooperative, A&O X 3, pleasant, answers questions appropriately Exam: See below - Head Head exam: Present: normocephalic - Eye Eye exam: Present: EOMI, conjuntiva pink - ENT ENT exam: Present: mucous membranes moist - Respiratory Respiratory exam: Present: CTAB. Absent: rales, wheezes - Cardiovascular Cardiovascular exam: Present: RRR. Absent: tachycardia - GI/Abdominal GI/Abdominal exam: Present: soft. Absent: tenderness - Extremities Exam Extremities exam: Present: warm. Absent: pedal edema, tenderness - Neurological Exam Neurological exam: Present: alert, oriented X3 Additional comments: R facial weakness - forehead weaker on R. - Skin Skin exam: Present: dry, warm - Patient Status Disposition: Home, Self-Care Condition: Good Functional capacity at discharge: independent ambulation Overall status at discharge: patient is progressing back to baseline - Discharge Instructions Follow Up With: Lesly Taylor CNP [Advanced Practice Nurse] - 10/09/18 11:00 am NONE,PCP [Primary Care Provider] - - Diet and Activity Activity: increase activity as tolerated Diet: advance to your usual diet
--- NOTE | 2018-09-30 17:35 | Electrocardiograph Report ---
[address] [place], [place] [address] Test Date: 2018-09-29 Pat Name: Yuriy Lujan Department: EXAM21 Room: 3B45 Gender: M Editor Producer: : [id number] Requested By: Jessie Calderon Order Number: [id number] Reading MD: Ying Garcia Measurements Intervals [place] Rate: 76 P: 3 MD: 202 QRS: 51 QRSD: 121 T: 144 QT: 432 QTc: 486 Interpretive Statements Sinus rhythm Nonspecific intraventricular conduction delay POSSIBLE PRIOR INFERIOR MYOCARDIAL INFARCTION NONSPECIFIC ST-T WAVE CHANGES Electronically Signed On 09-30-2018 17:33:10 EST by Ying Garcia
== END 2018-09-30 15:07 | disposition home or self-care (01) | DRG 74 ==
LOC: EMEROOARM 14:46 → 3BNU 14:46
PROVIDERS: ADMIT Hospitalist; ATTEND Hospitalist

== ENCOUNTER 2020-04-17 11:39 | Observation (INO) ==
[2020-04-17] MEDS ORDERED: Ondansetron 4 MG/2 ML VIAL IVP PRN (14:59)
[2020-04-17] MEDS ORDERED: Naloxone 0.4 MG/ML INJ IVP PRN (14:59)
[2020-04-17] MEDS ORDERED: Ipratropium/Albuterol Neb 3 ML IH PRN (15:34)
[2020-04-17] MEDS ORDERED: D5% in Water 1,000 ML IVC PRN (15:34)
[2020-04-17] MEDS ORDERED: Dextrose Gel 15 GM/37.5 ML TUBE PO PRN ×2 (15:34)
[2020-04-17] MEDS ORDERED: *HR* Dextrose 50 % in Water (Vial) 50 ML VIAL IVP PRN (15:34)
[2020-04-17] MEDS ORDERED: Perflutren Lipid Microsphere 1.3 ML in 0.9 % Sodium Chloride 8.7 ML IVP PRN (15:55)
[2020-04-17 16:13] LABS: Hematocrit 23.7 % (37.5-50.1); Hemoglobin 7.1 g/dL (12.9-16.9)
[2020-04-17] MEDS: cefTRIAXone 1,000 MG in 0.9 % Sodium Chloride Mini Bag 100 ML IVPB SCH (16:22)
[2020-04-17] MEDS: Insulin LISPRO 300 UNITS/3 ML VIAL SQ SCH ×2 (16:24→21:42)
[2020-04-17] MEDS: carvediloL 25 MG TABLET PO SCH (16:31)
[2020-04-17] MEDS: Nicotine 14 MG PATCH.TD24 TD SCH (16:31)
[2020-04-17] MEDS: Azithromycin 500 MG in 0.9 % Sodium Chloride 250 ML IVPB SCH (17:45)
[2020-04-17] MEDS ORDERED: 0.9 % Sodium Chloride 250 ML ONE (18:03)
[2020-04-17] MEDS ORDERED: 0.9 % Sodium Chloride 250 ML IVC ONE (23:15)
[2020-04-18 02:25] LABS: Sodium, Urine 67.1 mEq/L
[2020-04-18] MEDS ORDERED: Pregabalin 75 MG CAPSULE PO ONE (04:26)
[2020-04-18 05:34] LABS: Basophils % 0.3 %; Eosinophils # 0.1 K/mcL (0.0-0.6); Hematocrit 27.9 % (37.5-50.1); Immature Granulocytes % 1.3 % (0-4); Lymphocytes # 1.9 K/mcL (0.6-4.6); Lymphocytes % 20.1 %; Mean Corpuscular HGB Conc 30.8 g/dL (31.6-35.5); Mean Corpuscular Volume 90.9 fL (83.0-100.0); Mean Platelet Volume 10.6 fL (9.4-12.4); Monocytes # 0.7 K/mcL (0.0-1.3); Neutrophils # 6.5 K/mcL (1.6-8.9); Platelet Count 217 K/mcL (140-400); Red Blood Count 3.07 M/mcL (4.19-5.50); Red Cell Distribution Width 15.3 % (11.5-14.5); Segmented Neutrophils % 70.3 %; White Blood Count 9.3 K/mcL (4.3-11.1)
[2020-04-18 05:36] LABS: Hemoglobin 8.6 g/dL (12.9-16.9)
[2020-04-18 05:53] LABS: Calcium 8.4 mg/dL (8.6-10.3); Potassium 4.2 mEq/L (3.5-5.1)
[2020-04-18] MEDS: amLODIPine 5 MG TABLET PO SCH (07:41)
[2020-04-18] MEDS: Nicotine 14 MG PATCH.TD24 TD SCH (07:41)
[2020-04-18] MEDS: Aspirin Enteric Coated 81 MG Tablet PO SCH (07:41)
[2020-04-18] MEDS: carvediloL 25 MG TABLET PO SCH ×2 (07:41→17:05)
[2020-04-18] MEDS: Insulin LISPRO 300 UNITS/3 ML VIAL SQ SCH ×4 (07:43→22:28)
[2020-04-18] MEDS ORDERED: Simethicone 40 MG/0.6 ML MLS IR ONE (11:25)
[2020-04-18] MEDS ORDERED: *HR* FentaNYL (PF) 100 MCG/2 ML VIAL IVP ONE (11:25)
[2020-04-18] MEDS ORDERED: *HR* Midazolam HCl 5 MG/5 ML VIAL IVP ONE ×2 (11:25→11:47)
[2020-04-18] MEDS ORDERED: Tetracaine/Benzocaine/Butamben 1 SPRAY AEROSOL MM ONE (11:25)
[2020-04-18] MEDS ORDERED: *HR* FentaNYL (PF) 100 MCG/2 ML VIAL ONE (11:47)
[2020-04-18] MEDS: cefTRIAXone 1,000 MG in 0.9 % Sodium Chloride Mini Bag 100 ML IVPB SCH (15:57)
[2020-04-18] MEDS: Azithromycin 500 MG in 0.9 % Sodium Chloride 250 ML IVPB SCH (17:18)
[2020-04-19] MEDS ORDERED: Pregabalin 75 MG CAPSULE PO ONE (00:05)
[2020-04-19 05:41] LABS: Basophils % 0.4 %; Eosinophils # 0.3 K/mcL (0.0-0.6); Eosinophils % 3.6 %; Hemoglobin 8.7 g/dL (12.9-16.9); Immature Granulocytes % 1.5 % (0-4); Lymphocytes # 1.6 K/mcL (0.6-4.6); Lymphocytes % 19.8 %; Mean Corpuscular Hemoglobin 27.4 pg (28.0-33.3); Mean Corpuscular Volume 91.5 fL (83.0-100.0); Mean Platelet Volume 10.7 fL (9.4-12.4); Monocytes # 0.6 K/mcL (0.0-1.3); Monocytes % 7.8 %; Neutrophils # 5.4 K/mcL (1.6-8.9); Nucleated Red Blood Cells 0.2 /100 WBC (0); Platelet Count 210 K/mcL (140-400); Red Blood Count 3.17 M/mcL (4.19-5.50); Red Cell Distribution Width 15.3 % (11.5-14.5); Segmented Neutrophils % 66.9 %; White Blood Count 8.1 K/mcL (4.3-11.1)
[2020-04-19 06:03] LABS: Calcium 8.3 mg/dL (8.6-10.3); Magnesium 2.2 mg/dL (1.6-2.6); Phosphorous 5.1 mg/dL (2.7-4.5); Potassium 4.1 mEq/L (3.5-5.1)
[2020-04-19 07:52] VITALS: BP 168/77
[2020-04-19] MEDS: Nicotine 14 MG PATCH.TD24 TD SCH (08:25)
[2020-04-19] MEDS: Aspirin Enteric Coated 81 MG Tablet PO SCH (08:29)
[2020-04-19] MEDS: amLODIPine 5 MG TABLET PO SCH (08:29)
[2020-04-19] MEDS: Insulin LISPRO 300 UNITS/3 ML VIAL SQ SCH (08:30)
[2020-04-19] MEDS: carvediloL 25 MG TABLET PO SCH (08:30)
== END 2020-04-19 16:13 | disposition left against medical advice (07) ==
LOC: 2ANU → SUATTDRO 14:30 → 2ANU 04-19 12:33
PROVIDERS: ADMIT Internal Medicine; ATTEND Family Medicine
PROC: ENDOEBX (2020-04-18 19:25)

== ENCOUNTER 2020-08-03 14:02 | Observation (INO) ==
[2020-08-03 15:38] LABS: Calcium 7.9 mg/dL (8.6-10.3); Potassium 3.7 mEq/L (3.5-5.1)
[2020-08-03 15:59] LABS: Basophils # 0.1 K/mcL (0.0-0.2); Basophils % 0.8 %; Eosinophils # 0.4 K/mcL (0.0-0.6); Eosinophils % 5.8 %; Hematocrit 32.1 % (37.5-50.1); Hemoglobin 9.7 g/dL (12.9-16.9); Immature Granulocytes % 1.2 % (0-4); Lymphocytes # 1.7 K/mcL (0.6-4.6); Lymphocytes % 22.6 %; Mean Corpuscular HGB Conc 30.2 g/dL (31.6-35.5); Mean Corpuscular Hemoglobin 27.6 pg (28.0-33.3); Mean Corpuscular Volume 91.5 fL (83.0-100.0); Mean Platelet Volume 11.8 fL (9.4-12.4); Monocytes # 0.6 K/mcL (0.0-1.3); Monocytes % 8.1 %; Neutrophils # 4.6 K/mcL (1.6-8.9); Platelet Count 171 K/mcL (140-400); Red Blood Count 3.51 M/mcL (4.19-5.50); Red Cell Distribution Width 18.6 % (11.5-14.5); Segmented Neutrophils % 61.5 %; White Blood Count 7.5 K/mcL (4.3-11.1)
[2020-08-03] MEDS ORDERED: *HR* HYDROcodone/Acet 5/325 mg TABLET PO PRN (16:34)
[2020-08-03] MEDS ORDERED: Ondansetron 4 MG/2 ML VIAL IVP PRN (16:34)
[2020-08-03] MEDS ORDERED: Naloxone 0.4 MG/ML INJ IVP PRN (16:34)
[2020-08-03] MEDS ORDERED: *HR* Dextrose 50 % in Water (Vial) 50 ML VIAL IVP PRN (16:38)
[2020-08-03] MEDS ORDERED: D5% in Water 1,000 ML IVC PRN (16:38)
[2020-08-03] MEDS ORDERED: Dextrose Gel 15 GM/37.5 ML TUBE PO PRN ×2 (16:38)
[2020-08-03] MEDS ORDERED: Ipratropium/Albuterol Neb 3 ML IH PRN (16:40)
[2020-08-03] MEDS ORDERED: Insulin DETEMIR 100 UNIT/ML X5UNITS SQ SCH (21:00)
[2020-08-03] MEDS: carvediloL 25 MG TABLET PO SCH (22:15)
[2020-08-03] MEDS: Pregabalin 75 MG CAPSULE PO SCH (22:16)
[2020-08-04 05:21] LABS: Basophils % 0.5 %; Eosinophils # 0.3 K/mcL (0.0-0.6); Eosinophils % 5.8 %; Hematocrit 27.9 % (37.5-50.1); Hemoglobin 8.4 g/dL (12.9-16.9); Immature Granulocytes % 0.9 % (0-4); Lymphocytes # 1.3 K/mcL (0.6-4.6); Lymphocytes % 23.8 %; Mean Corpuscular HGB Conc 30.1 g/dL (31.6-35.5); Mean Corpuscular Hemoglobin 27.6 pg (28.0-33.3); Mean Corpuscular Volume 91.8 fL (83.0-100.0); Mean Platelet Volume 11.7 fL (9.4-12.4); Monocytes # 0.5 K/mcL (0.0-1.3); Monocytes % 8.4 %; Neutrophils # 3.3 K/mcL (1.6-8.9); Platelet Count 155 K/mcL (140-400); Red Blood Count 3.04 M/mcL (4.19-5.50); Red Cell Distribution Width 18.3 % (11.5-14.5); Segmented Neutrophils % 60.6 %; White Blood Count 5.5 K/mcL (4.3-11.1)
[2020-08-04 05:23] LABS: INR 1.1; Prothrombin Time 12.5 Seconds (9.4-12.1)
[2020-08-04 05:24] LABS: Activated Partial Thrombo Time 27.1 Seconds (26.0-36.0)
[2020-08-04 05:35] LABS: Calcium 7.5 mg/dL (8.6-10.3); Magnesium 1.6 mg/dL (1.6-2.6); Phosphorous 4.8 mg/dL (2.7-4.5); Potassium 3.9 mEq/L (3.5-5.1)
[2020-08-04] MEDS: carvediloL 25 MG TABLET PO SCH (08:45)
[2020-08-04] MEDS: Pregabalin 75 MG CAPSULE PO SCH (08:45)
[2020-08-04] MEDS: Insulin LISPRO 300 UNITS/3 ML VIAL SQ SCH ×2 (08:45→12:09)
[2020-08-04] MEDS ORDERED: Aspirin Enteric Coated 81 MG Tablet PO SCH (09:00)
[2020-08-04] MEDS ORDERED: amLODIPine 5 MG TABLET PO SCH (09:00)
[2020-08-04 11:13] VITALS: BP 112/50
== END 2020-08-04 16:17 | disposition home or self-care (01) ==
LOC: 2ANU 14:02 → EMEROOARM 14:02 → 2ANU 17:32
PROVIDERS: ADMIT Internal Medicine; ATTEND Internal Medicine